=== PATIENT | male | born 1975 | race American Indian/Alaskan Native ===

== ENCOUNTER 2016-12-28 01:10 | Emergency (ER) | payer SELFPAY ==
--- NOTE | 2016-12-28 02:15 | Emergency Department Report ---
ED Psych HPI - General Chief Complaint: Psych Stated Complaint: ANXIETY,CP,ETOH Time Seen by Provider: 12/28/16 02:08 Source: patient, EMS Mode of arrival: Stretcher - History of Present Illness Initial Comments: This is a 41-year-old gentleman who presents by EMS with fairly dizzying story. He has apparently been drinking tonight. He was found outside [facility] and was very combative was refusing to give EMS information. Patient continues to be a little bit elusive for me from a historical standpoint as well. He denies any suicidal or homicidal ideations. Doesn't really speak in specific terms regarding his past medical or psychiatric history. His main complaint is chest pain tonight. He is noted to be quite emotional as well. He states his chest pains been going on for 6 months. He states he just does not have a strong heartbeat anymore he feels that his heartbeat is weak and this is causing him to be close to . Patient denies any fevers denies any shortness of breath. - Related Data Previous Rx's Medication Instructions Recorded Last Taken Type Ranitidine HCl [Zantac 150 MG TAB] 150 mg PO BID PRN #30 tablet 12/28/16 Unknown Rx Allergies Allergy/AdvReac Type Severity Reaction Status Date / Time No Known Allergies Allergy Verified 12/28/16 02:00 ED Review of Systems ROS: Stated complaint: ANXIETY,CP,ETOH Other details as noted in HPI Comment: All other systems reviewed and negative Constitutional: denies: chills, weakness Eyes: denies: eye pain, eye discharge, vision change ENT: denies: ear pain, throat pain Respiratory: denies: cough, shortness of breath, wheezing Cardiovascular: as per HPI, chest pain. denies: palpitations Endocrine: no symptoms reported Gastrointestinal: abdominal pain. denies: nausea, diarrhea Genitourinary: denies: urgency, dysuria Musculoskeletal: denies: back pain, joint swelling, arthralgia Skin: denies: rash, lesions Neurological: denies: headache, weakness, paresthesias Psychiatric: anxiety. denies: depression, auditory hallucinations, visual hallucinations, homicidal thoughts, suicidal thoughts Hematological/Lymphatic: denies: easy bleeding, easy bruising ED Past Medical Hx - Past Medical History Additional medical history: UNABLE TO OBTAIN - Surgical History Additional Surgical History: UNABLE TO OBTAIN - Social History Smoking Status: Unknown if ever smoked - Medications Home Medications: Home Medications Medication Instructions Recorded Confirmed Last Taken Type Ranitidine HCl [Zantac 150 MG TAB] 150 mg PO BID PRN #30 tablet 12/28/16 Unknown Rx ED Physical Exam - General Limitations: Other General appearance: alert, appears intoxicated, anxious - Head Head exam: Present: atraumatic, normocephalic - Eye Eye exam: Present: normal appearance, EOMI, other (scleral injection). Absent: scleral icterus - ENT ENT exam: Present: normal exam, normal orophraynx, mucous membranes moist - Neck Neck exam: Present: normal inspection. Absent: meningismus, lymphadenopathy - Respiratory Respiratory exam: Present: normal lung sounds bilaterally. Absent: respiratory distress, wheezes, rales - Cardiovascular Cardiovascular Exam: Present: regular rate, normal rhythm. Absent: systolic murmur, diastolic murmur, rubs, gallop - GI/Abdominal GI/Abdominal exam: Present: soft, tenderness (diffusely), normal bowel sounds. Absent: guarding, rebound - Rectal Rectal exam: Present: deferred - Extremities Exam Extremities exam: Present: normal inspection, full ROM. Absent: tenderness, pedal edema, calf tenderness - Back Exam Back exam: Present: normal inspection. Absent: tenderness, CVA tenderness (R), CVA tenderness (L) - Neurological Exam Neurological exam: Present: alert, oriented X3 - Psychiatric Psychiatric exam: Present: depressed, anxious. Absent: homicidal ideation, suicidal ideation - Skin Skin exam: Present: warm, dry, intact, normal color. Absent: rash ED Course Vital Signs 12/28/16 12/28/16 12/28/16 01:41 02:53 07:25 Temperature 98.3 F 98.4 F Pulse Rate 109 H 94 H Respiratory 16 20 18 Rate Blood Pressure 125/87 Blood Pressure 115/70 [Left] O2 Sat by Pulse 99 98 Oximetry 12/28/16 07:55 Temperature Pulse Rate Respiratory 16 Rate Blood Pressure Blood Pressure [Left] O2 Sat by Pulse Oximetry - Reevaluation(s) Reevaluation #1: 12/28/16 03:02 ECG at 02 55 with sinus tachycardia at 109 bpm. Otherwise normal ECG. Normal MA and normal QRS normal axis. Reevaluation #2: 12/28/16 04:52 Blood tests are noted here. They're unremarkable in general. I'm still waiting for alcohol level. Patient is very difficult to assess due to his perseveration on his chest discomforts. I have low suspicion that this is truly cardiac in nature. His ECG is normal here. His heart enzymes are negative. Presentation seems much more related to alcohol in general. I'm suspicious his chest pain may be due to gastritis. Given medication to this and to try to help with this. We'll try to reassess in another hour to see if he is changed his story with the alcohol hopefully having metabolized to some degree. At this point he has not demonstrated any specific homicidal or suicidal ideations or reason to place him under 1013 at this time. Reevaluation #3: 12/28/16 05:16 Alcohol noted to be 0.33. Patient is just on in a position where he can have a good conversation in an appropriate manner with me. I will have him seen by crisis once he is more sober. I will have discharge paperwork on his chart regarding chest pain with the referral for follow-up. Suspect there is a component of gastritis as the etiology for this. We'll write him for an antacid as well. I did encourage him alcohol cessation as well. He denies that he has an alcoholism problem. I question this. Reevaluation #4: 12/28/16 20:10 Patient is spent today in the emergency department. He has sobered up. I was able an intelligent conversation with this gentleman. He has little recollection of the evening. I suspect this is due to his inebriation last night. He is much more pleasant and clear and coherent and our conversation today. He denies any suicidal or homicidal ideations. He does report anxiety in general. He states he does binge drink when he does drink. He denies drinking being habitual thing however. I do strongly suspect his pain was due to gastritis. He has no pains whatsoever at this time. He is calm and pleasant. He wants to just leave. I feel he is appropriate for home at this time. 1013 is rescinded. He is very clear and lucid. He is given appropriate resources and referrals. ED Medical Decision Making - Lab Data Result diagrams: 12/28/16 02:20 12/28/16 02:20 Critical care attestation.: If time is entered above; I have spent that time in minutes in the direct care of this critically ill patient, excluding procedure time. ED Disposition Clinical Impression: Chest pain Qualifiers: Chest pain type: precordial chest pain Qualified Code(s): R07.2 - Precordial pain Gastritis Qualifiers: Gastritis type: alcoholic Chronicity: acute Gastritis bleeding: without bleeding Qualified Code(s): K29.20 - Alcoholic gastritis without bleeding Alcohol intoxication Qualifiers: Complication of substance-induced condition: uncomplicated Qualified Code(s): F10.120 - Alcohol abuse with intoxication, uncomplicated Disposition: DISCHARGED TO HOME OR SELFCARE Is pt being admited?: No Does the pt Need Aspirin: No Condition: Stable Instructions: Chest Pain (ED), Alcohol Intoxication (ED) Additional Instructions: Stop drinking alcohol. He need to establish care with a primary doctor for continued management of your discomforts. He has been given referral for [facility] as well. I would encourage you to follow up with them in a seen by her counselor for continued psychotherapy and assistance with standing up alcohol. Prescriptions: Ranitidine HCl [Zantac 150 MG TAB] 150 mg PO BID PRN #30 tablet PRN Reason: Pain Referrals: [facility] [Provider Group] - 3-5 Days [facility] [Outside] - 3-5 Days Time of Disposition: 20:08
[2016-12-28] MEDS ORDERED: NACL 0.9% 1000 ML 1,000 ML IV ONE (02:20)
[2016-12-28] MEDS ORDERED: DILAUDID IV ONE (02:20)
[2016-12-28] MEDS ORDERED: PROTONIX IV ONE (02:20)
[2016-12-28] MEDS ORDERED: ZOFRAN IV ONE (02:20)
[2016-12-28 02:33] LABS: Basophils % (Auto) 0.4 % (0.0-1.8); Eosinophils % (Auto) 2.2 % (0.0-4.3); Hematocrit 37.4 % (35.5-45.6); Hemoglobin 12.8 gm/dl (11.8-15.2); Mean Corpuscular HGB Conc 34 % (32-34); Mean Corpuscular Hemoglobin 29 pg (28-32); Mean Corpuscular Volume 85 fl (84-94); Platelet Count 179 K/mm3 (140-440); Red Blood Count 4.38 M/mm3 (3.65-5.03); Red Cell Distribution Width 14.1 % (13.2-15.2); White Blood Count 5.9 K/mm3 (4.5-11.0)
[2016-12-28 02:33] LABS: Urine Drugs of Abuse Note Disclamer
[2016-12-28 02:37] LABS: Bilirubin,Urine NEG (Negative); Blood,Urine SM (Negative); Ketones,Urine NEG (Negative); Leukocyte Esterase,Urine NEG (Negative); Nitrite,Urine NEG (Negative); Protein,Urine <15 mg/dL mg/dL (Negative); Urobilinogen,Urine < 2.0 mg/dL (<2.0)
[2016-12-28 02:42] LABS: Mucus,Urine 1+ /HPF; RBC,Urine < 1.0 /HPF (0.0-6.0)
[2016-12-28 02:53] LABS: Anion Gap 21 mmol/L; Blood Urea Nitrogen 11 mg/dL (9-20); Calcium 8.7 mg/dL (8.4-10.2); Carbon Dioxide 21 mmol/L (22-30); Chloride 102.6 mmol/L (98-107); Glucose 119 mg/dL (75-100); Potassium 4.1 mmol/L (3.6-5.0); Sodium 140 mmol/L (137-145)
[2016-12-28] MEDS ORDERED: ATIVAN ONE (07:50)
[2016-12-28] MEDS ORDERED: HALDOL ONE (07:50)
[2016-12-28] MEDS ORDERED: HALDOL IM ONE (07:57)
[2016-12-28] MEDS ORDERED: ATIVAN IM STA (07:57)
[2016-12-28 09:26] VITALS: BP 115/70
--- NOTE | 2016-12-28 15:13 | Consultation ---
History of Present Illness - Reason for Consult Consult date: 12/28/16 Reason for consult: Mental Health Evaluation Requesting physician: HAYLEY ROSAS - Chief Complaint Chief complaint: "I was not combative" - History of Present Psychiatric Illness This is a 41-year-old gentleman who presents by EMS with fairly dizzying story. Currently, patient is calm and cooperative during assessment. He stated that he called EMS outside a restaurant because he felt he needed help. He feels that he was not combative at all with the EMS. He stated, "They were combative with me." He admits to drinking before the incident. Also, patient has had some "bad luck lately" referencing the following: His brother last year, currently from his , unemployed, and homeless. He states, "I may have a little drinking problem." He admits to drinking 3 cans a beer a day over the past couple years. The patient states that his drinking has increased since experiencing the above life stressors. Also, patient states that he "snort cocaine" often. He denies SI/HI's and AVH's now or in the past per the patient. Patient positive for cocaine. Medications and Allergies Allergies Allergy/AdvReac Type Severity Reaction Status Date / Time No Known Allergies Allergy Verified 12/28/16 02:00 Home Medications Medication Instructions Recorded Confirmed Last Taken Type Ranitidine HCl [Zantac 150 MG TAB] 150 mg PO BID PRN #30 tablet 12/28/16 Unknown Rx Past psychiatric history - Past Medical History Past Medical History: No medical history Past Surgical History: No surgical history - past Psychiatric treatment and history psychiatric treatment history: Denies psy hx. Denies fam psy hx.. - Social History Social history: other (Homeless, and currently seperated from spouse) Mental Status Exam - Vital signs Last Vital Signs Temp 98.4 F 12/28/16 07:25 Pulse 94 H 12/28/16 07:25 Resp 16 12/28/16 07:55 BP 115/70 12/28/16 07:25 Pulse Ox 98 12/28/16 07:25 - Exam Narrative exam: ROS (-) Depression, (-) Psychosis Orientation: time, place, person Affect: flat Mood: congruent with affect Thought content: other (None) Thought Process: Intact Perceptions: none Speech: normal rate and pattern Concentration: other (Intact) Motor activity: other (lying down) Level of consciousness: alert Memory: Intact Sleep Symptoms: None Interaction: cooperative Results Result Diagrams: 12/28/16 02:20 12/28/16 02:20 Abnormal lab results 12/28/16 12/28/16 12/28/16 Range/Units 02:20 02:20 02:20 Lymph % (Auto) 41.0 H (13.4-35.0) % Wake % (Auto) 9.8 H (0.0-7.3) % Carbon Dioxide 21 L (22-30) mmol/L Glucose 119 H (75-100) mg/dL Plasma/Serum Alcohol 0.33 H (0-0.07) gm% 12/28/16 Range/Units 11:47 Lymph % (Auto) (13.4-35.0) % Wake % (Auto) (0.0-7.3) % Carbon Dioxide (22-30) mmol/L Glucose (75-100) mg/dL Plasma/Serum Alcohol 0.18 H (0-0.07) gm% All other labs normal. Assessment and Plan Assessment and plan: Impression: Substance/Alcohol Abuse Disorder. Patient is calm, cooperative, with a linear thought process. He denies being combative with EMS when transported to [facility]. Patient denies SI/HI's or AVH's. Positive for cocaine with a alcohol serum 0.18. Recommendation/Plan: Substance Abuse (AA) and outpatient information given to patient. Manager Surgical pending placement for patient, he is homeless. Generalized coping skill discussed with patient. Patient does not meet criteria for 1013. l
--- NOTE | 2016-12-28 16:00 | Event Note ---
Date: 12/28/16 Patient is not homicidal or suicidal. He is intoxicated. Earlier on today he was somewhat belligerent with staff, and required Haldol and Ativan. Repeat blood alcohol level is 0.18 and 11:47 AM. Repeat blood alcohol level is pending. Vital Signs 12/28/16 12/28/16 12/28/16 01:41 02:53 07:25 Temperature 98.3 F 98.4 F Pulse Rate 109 H 94 H Respiratory 16 20 18 Rate Blood Pressure 125/87 Blood Pressure 115/70 [Left] O2 Sat by Pulse 99 98 Oximetry 12/28/16 07:55 Temperature Pulse Rate Respiratory 16 Rate Blood Pressure Blood Pressure [Left] O2 Sat by Pulse Oximetry Vital Signs 12/28/16 12/28/16 12/28/16 01:41 02:53 07:25 Temperature 98.3 F 98.4 F Pulse Rate 109 H 94 H Respiratory 16 20 18 Rate Blood Pressure 125/87 Blood Pressure 115/70 [Left] O2 Sat by Pulse 99 98 Oximetry 12/28/16 07:55 Temperature Pulse Rate Respiratory 16 Rate Blood Pressure Blood Pressure [Left] O2 Sat by Pulse Oximetry
== END 2016-12-28 19:36 | disposition home or self-care (01) ==
LOC: EDSEX → ED 01:10
DX: F10.120 Alcohol abuse with intoxication, uncomplicated (principal); K29.20 Alcoholic gastritis without bleeding; R07.2 Precordial pain
CPT/HCPCS: 36415; 80048; 80307; 81001; 84484; 85025; 93005; 93010; 96361; 96372; 96374; 96375; 99285; C9113; G0480; J1170; J1630; J2060; J2405; J7030; 80320